=== PATIENT | female | born 1945 | race Caucasian/White ===

== ENCOUNTER → 2023-12-29 07:18 | Outpatient (REF) | payer BC, SELFPAY | LOC: RAD 07:18 | PROVIDERS: ATTENDING PHYSICIAN Family Medicine | DX: M81.0 Age-related osteoporosis without current pathological fracture (principal) | CPT/HCPCS: 77080 ==

== ENCOUNTER → 2024-09-28 16:16 | Outpatient (REF) | payer BC, SELFPAY | LOC: WDC 16:16 | PROVIDERS: ATTENDING PHYSICIAN Family Medicine | DX: Z12.31 Encounter for screening mammogram for malignant neoplasm of breast (principal) | CPT/HCPCS: 77063; 77067 ==